=== PATIENT | male | born 1985 | race Caucasian/White ===

== ENCOUNTER 2018-06-21 07:12 | Emergency (ER) | payer OTHER ==
[2018-06-21 07:32] VITALS: BP 115/73; PULSE 115; RESP 16; TEMP 97.3; O2SAT 99
== END 2018-06-21 08:04 | disposition home or self-care (01) | DRG 563 ==
LOC: ED 07:12
DX: S83.92XA Sprain of unspecified site of left knee, initial encounter (principal)
CPT/HCPCS: 73590; 99282